=== PATIENT | male | born 1995 | race Caucasian/White ===

== ENCOUNTER → 2018-06-17 | Outpatient (CLI) | payer MEDICARE, OTHER ==
[~2018-06-17] MED LIST: KLON0.5T PO
== END ==
LOC: M OUTALCOH 08:09
PROVIDERS: ATTEND Psychiatry & Neurology Psychiatry
DX: F11.20 Opioid dependence, uncomplicated (principal)

== ENCOUNTER 2018-06-29 10:04 | Outpatient (RCR) | payer OTHER | END 2018-07-05 | LOC: M OUTALCOH 10:04 | PROVIDERS: ATTEND Psychiatry & Neurology Psychiatry | DX: F11.20 Opioid dependence, uncomplicated (principal); F12.20 Cannabis dependence, uncomplicated ==

== ENCOUNTER → 2019-11-22 | Outpatient (CLI) | payer OTHER | LOC: M OUTALCOH 09:00 | PROVIDERS: ATTEND Psychiatry & Neurology Addiction Medicine | DX: Z03.89 Encounter for observation for other suspected diseases and conditions ruled out (principal) ==

== ENCOUNTER 2020-09-28 15:09 | Emergency (ER) | payer OTHER ==
[~2020-09-28] VITALS: Ht 172.7 cm; Wt 75.1 kg
[2020-09-28 15:10] VITALS: BP 129/78
--- NOTE | 2020-09-28 21:20 | ECGEPIP ---
[facility] - ED Test Date: 2020-09-28 Pat Name: MAHESH ARREGUIN Department: Room: - Gender: Male Dismantler: : 1995 Requested By: Bunny Greene Order Number: [id number] Reading MD: Bunny Adorno Measurements Intervals [place] Rate: 91 P: 59 MO: 162 QRS: 79 QRSD: 80 T: 44 QT: 346 QTc: 425 Interpretive Statements Sinus rhythm with marked sinus arrhythmia Early repolarization NO PRIORS FOR COMPARISON Electronically Signed on 09-28-2020 21:20:03 EDT by Bunny Adorno
== END 2020-09-28 17:58 | disposition left against medical advice (07) ==
LOC: M ED 15:09
DX: Z53.21 Procedure and treatment not carried out due to patient leaving prior to being seen by health care provider (principal)

== ENCOUNTER → 2022-12-24 | Outpatient (CLI) | payer SELFPAY ==
[2022-12-24 20:15] LABS: HEPATITIS B SURFACE ANTIBODY NEGATIVE (POSITIVE)
[2022-12-24 20:40] LABS: HIV 1&2 SCREEN NEGATIVE (NEGATIVE)
== END ==
LOC: M PLALAB 10:27
PROVIDERS: ATTEND Internal Medicine Infectious Disease
DX: B18.2 Chronic viral hepatitis C (principal)

== ENCOUNTER → 2023-10-03 | Outpatient (CLI) | payer OTHER ==
[2023-10-03 17:47] LABS: ALBUMIN 4.3 G/DL (3.2-5.2); ALKALINE PHOSPHATASE 56 U/L (46-116); ALT/SGPT 22 U/L (7.0-40); AST/SGOT 22 U/L (<34); BILIRUBIN,DIRECT 0.2 MG/DL (<0.4); BILIRUBIN,TOTAL 0.7 MG/DL (0.3-1.2); TOTAL PROTEIN 7.6 G/DL (5.7-8.2)
[2023-10-03 18:32] LABS: HEPATITIS C VIRUS ABY INDEX > 11.00 INDEX (<0.8)
[2023-10-06 12:43] LABS: HCV RNA QUANTITATION <15 NOT DETECTED IU/mL (NOT DETECTED); HCV RNA log10 <1.18 NOT DETECTED Log IU/mL (NOT DETECTED)
== END ==
LOC: M PLALAB 15:38
PROVIDERS: ATTEND Internal Medicine Infectious Disease
DX: B18.2 Chronic viral hepatitis C (principal)